=== PATIENT | female | born 1975 | race Caucasian/White ===

== ENCOUNTER 2019-10-03 13:59 | Emergency (ER) | payer MEDICAID, SELFPAY ==
[2019-10-03 14:05] VITALS: BP 115/65; PULSE 95; TEMP 36.7; O2SAT 97
[2019-10-03 14:15] VITALS: RESP 18
[2019-10-03 14:40] VITALS: BP 115/65; PULSE 95; RESP 18; TEMP 36.7; O2SAT 97
[2019-10-03] MEDS: Ibuprofen 600 MG TAB (14:44)
--- NOTE | 2019-10-03 14:47 | ED.GENADUL_ITS ---
Discharge Plan Disposition Patient Disposition: HOME Condition: Stable Discharge Details Chief Complaint: ChemExpose Clinical Impression: Toxic effect of propane Primary Care Provider: Kalee Coleman ED Provider: Gian Cardenas Home Meds and New Rx's Prescriptions: No Action No Known Home Meds RF: 0 Discharge Instructions Additional Instructions: Oxygen level and carbon monoxide level are both appropriate. Please watch for new or worsening symptoms and return to the ER for any concerns. I recommend that you follow the instructions given to you by [facility]. I also recommend that you have the proper detectors in your house and if you are unsure I do believe you can contact the local fire department to be sure of your resources. Watch for new or worsening symptoms and return to the ER for any concerns Medical Decision Making 44-year-old female with no significant past medical history presents after prop ane exposure that occurred last night. [employer] called and they shut off the source. No other gaseous exposures are suspected. She reports improvement of her symptoms from overnight to now but just wants to be sure things are still okay. Denies nausea currently. Reports that she just feels groggy and slightly nauseous. Denies any focal weakness. O2 sats are 97% on room air, lungs are clear to auscultation. She appears well, nontoxic and is neurologically intact. Carbon monoxide level is 2. There is no indication for additional emergent testing here in the ER. Discussed this with patient and family and she is comfortable with this plan. We did discuss the importance of following the instruction set forth by [facility], being sure that she has all appropriate detectors within the house, and that contacting the local fire department may be helpful for further investigation or additional resources locally. Medical Records Medical records reviewed: Yes I reviewed the patient's medical records. HPI General Mode of arrival: ambulatory . Date/Time Provider Initiated Documentation: 10/03/19 14:12 . Limitations to Documentation: no limitations . Information obtained by: patient . HPI Narrative: 44-year-old female with no significant past medical history presents to the ER having been exposed to propane in her house yesterday evening-night. They contacted [facility] and the propane was shut off yesterday night. They do question if there was an exposure for the past 2 or 3 days as they thought perhaps an animal had within their wall, there was a foul smell. Denies any other exposures. She reports feeling groggy, mild headache, and was nauseous. Nausea has resolved. Denies visual changes, chest pain, shortness of breath, numbness, tingling, weakness. She reports that she does feel better than she did last night but after looking online into reading more about the exposure she just wants to be sure that both she and her son are okay Related Data Home Medications Medication Instructions Recorded Confirmed Unknown [No Known Home Meds] 10/03/19 10/03/19 Allergies Allergy/AdvReac Type Severity Reaction Status Date / Time No Known Allergies Allergy Unverified 10/03/19 14:20 General Stated Complaint: ChemExpose CORDELL: 4 Review of Systems Constitutional Constitutional: Denies fatigue, Reports headache(s) and Denies weakness Eyes Eyes: Denies change in vision ENT Ears, Nose, Mouth, and Throat: Reports headache(s) Cardiovascular Cardiovascular: Denies chest pain and Denies dyspnea Respiratory Respiratory: Denies cough and Denies dyspnea Gastrointestinal Gastrointestinal: Reports nausea and Denies vomiting Musculoskeletal Musculoskeletal: Denies myalgias, Denies numbness and Denies tingling Integumentary/Breasts Skin/Breast: Denies rash Neurologic Neurologic: Reports headache(s), Denies numbness, Denies tingling and Denies weakness Endocrine Endocrine: Denies fatigue PFSH Social History Smoking/Tobacco Use Status: Never Alcohol Intake: current Alcohol Intake frequency: holidays/special occasions only Drug use: Never Substance use type: does not use Do you feel safe at home: Yes Do you feel safe in your relationship?: Yes Exam Const General: cooperative, healthy appearing, comfortable and no acute distress Orientation: alert, awake and oriented x3 HENMT Head: normal to inspection, normocephalic and atraumatic Ears: hearing grossly normal bilaterally Mouth: moist mucous membranes Throat: posterior oropharynx normal Eyes General: appearance normal, both eyes and all related structures Alignment and Position: alignment normal Periorbital: periorbital findings normal Eyelids: eyelids normal Conjunctivae: conjunctivae normal Sclera: sclerae normal Cornea: corneas normal Pupils: PERRL EOM: EOM intact bilaterally Direct ophthalmoscopy: normal light reflex Neck Neck: normal visual inspection, full ROM, trachea midline and supple Resp Effort & Inspection: normal respiratory effort and able to speak in complete sentences Auscultation: clear to auscultation bilaterally Cardio Rate: regular rate Rhythm: regular rhythm Skin General skin exam: no rashes or lesions noted Neuro General: alert, awake, oriented x3, moves all extremities and no focal motor deficits Cranial Nerves: CN's II-XI intact bilaterally Cognition: normal cognition Speech: speech normal Gait: normal gait Motor: muscle tone normal throughout Sensory Exam: no sensory deficits noted Extrem General: normal to inspection, full ROM and normal capillary refill Psych Appearance: grossly normal Mental Status: mental status grossly normal Course Vital Signs Vital signs: Vital Signs Temperature 36.7 C 10/03/19 14:05 Pulse 95 H 10/03/19 14:05 Blood Pressure 115/65 10/03/19 14:05 Pulse Oximetry 97 10/03/19 14:05 Temperature 36.7 C 10/03/19 14:40 Temperature Source Temporal Artery Scan 10/03/19 14:05 Pulse 95 H 10/03/19 14:40 Respiratory Rate 18 10/03/19 14:40 Respiratory Effort Non-Labored 10/03/19 14:15 Respiratory Depth Normal 10/03/19 14:15 Respiratory Pattern Normal 10/03/19 14:15 Blood Pressure 115/65 10/03/19 14:40 Blood Pressure Position Sitting 10/03/19 14:05 Pulse Oximetry 97 10/03/19 14:40 Oxygen Delivery Method Room Air 10/03/19 14:05 Oxygen Flow Rate 0 10/03/19 14:05 Pain Level 6 10/03/19 14:44
== END 2019-10-03 14:56 | disposition home or self-care (01) ==
PROVIDERS: Emergency Provider Physician Assistant; PCP Family Medicine
DX: T59.91XA Toxic effect of unspecified gases, fumes and vapors, accidental (unintentional), initial encounter (principal); R51 Headache; R11.0 Nausea
CPT/HCPCS: 99282; 99283

== ENCOUNTER 2020-02-08 02:26 | Outpatient (CLI) | payer MEDICAID, SELFPAY ==
[2020-02-08 10:45] LABS: HCT 40.8 % (36.0-46.0); HGB 13.9 g/dL (12.0-15.5); Mean Corp. HGB Concentration 34.1 g/dL (32.0-36.0); Mean Corpuscular Hemoglobin 32.6 pg (27.0-33.0); Mean Corpuscular Volume 95.8 fL (80-95); Mean Platelet Volume 9.6 fL (8.0-11.0); Platelet Count 267 x1000/uL (130-400); RBC 4.26 m/cumm (4.00-5.20); RBC Distribution Width 12.1 % (11.7-14.6)
[2020-02-08 11:46] LABS: ALT 24 U/L (14-59); AST 15 U/L (15-37); Albumin 4.2 g/dL (3.4-5.0); Alkaline Phosphatase 64 U/L (46-116); Anion Gap 13.5 mmol/L (3-11); BUN 13 mg/dL (7-18); Bilirubin, Total 0.8 mg/dL (0.2-1.0); CO2 21.5 mmol/L (21.0-32.0); CREATININE 0.75 mg/dL (0.55-1.02); Calculated LDL 170 mg/dL (<100); Chloride 102 mmol/L (98-107); Cholesterol 253 mg/dL (<200); Glucose 93 mg/dL (74-106); HDL Cholesterol 68 mg/dL (40-60); Potassium 3.8 mmol/L (3.5-5.1); Sodium 137 mmol/L (136-145); Total Protein 7.3 g/dL (6.4-8.2); Triglyceride 77 mg/dL (<150)
== END 2020-02-08 02:46 ==
PROVIDERS: PCP Family Medicine; Visit Provider Nurse Practitioner Family
DX: Z13.220 Encounter for screening for lipoid disorders (principal); Z13.228 Encounter for screening for other metabolic disorders; Z00.00 Encounter for general adult medical examination without abnormal findings
CPT/HCPCS: 36415; 80053; 80061; 85027

== ENCOUNTER 2024-08-02 23:50 | Emergency (ER) | payer MEDICAID, SELFPAY ==
[2024-08-02 23:54] VITALS: BP 137/79; PULSE 152; RESP 16; TEMP 38.3; O2SAT 97; O2SAT 98
[2024-08-02 23:55] VITALS: BP 137/79; PULSE 146; O2SAT 98
[2024-08-02 23:58] VITALS: BP 137/79; PULSE 152; RESP 16; TEMP 38.3; O2SAT 97
[2024-08-03] VITALS (22 sets, daily range): BP systolic 84–125; BP diastolic 48–72; PULSE 84–135; RESP 11–33; TEMP 37.8; O2SAT 95–100
--- NOTE | 2024-08-03 | RT.EKG_ITS ---
APPROVED REPORT Exam: Resting ECG Reason for Exam: tachycardia Patient Location: E HR:115 bpm ECG Measurements Heart Rate 115 AXIS IL 147 P 38 QRSd 81 QRS 44 QT 345 T -22 QTc 477 Conclusion Sinus tachycardia...rate> 99 Ventricular premature complex...V complex w/ short R-R interval Aberrant conduction of SV complex(es)...aberrant shape, IL 80-220 Sinus tachycardia at 115 Some artifact present Normal axis/interval NS ST changes present
--- NOTE | 2024-08-03 | DI.RAD_ITS ---
Exam(s) XR CHEST 2V PA LATERAL EXAM: XR CHEST 2V PA LATERAL CLINICAL HISTORY: fever, cough, SOB TECHNIQUE: 2D digital imaging was performed of the chest. Two images were obtained. PA and lateral views were obtained. COMPARISON: CR CHEST 2 VIEWS PA,LAT from 01/01/2015 FINDINGS: MEDIASTINUM: Normal. HEART: Normal. PULMONARY VASCULATURE: Normal. LUNGS: Clear. PLEURAL SPACE: No pleural effusion or pneumothorax. BONE:Within normal limits for the patient's age. OTHER FINDINGS:Normal. IMPRESSION: No acute pulmonary findings. DATA REPOSITORY: RADIATION DOSE DELIVERED:
--- NOTE | 2024-08-03 00:09 | ED.GENADUL_ITS ---
Discharge Plan Disposition Patient Disposition: Home Condition: Good Discharge Details Clinical Impression: COVID Primary Care Provider: Kd Mckeon ED Provider: Ashish Parekh [place] Meds and New Rx's Prescriptions: New Paxlovid 300 mg (150 mg x 2)-100 mg tablets,dose pack See Rx Instructions .ROUTE .COMPLEX Qty: 30 0RF Rx Instructions: take TWO 150 mg tablets of nirmatrelvir with ONE 100 mg tablet of ritonavir twice daily for 5 days Discharge Instructions Instructions: COVID-19 ED Additional Instructions: You were seen in the ED for flulike symptoms and found to have COVID. Labs and chest x-ray otherwise reassuring and oxygenation is normal. Prescription for Paxlovid has been sent to your pharmacy you should begin it in the morning. Rest and stay hydrated, alternate acetaminophen with ibuprofen for pain and fever, dextromethorphan for cough if needed. Follow-up primary care next week if not improving. Return to ED for mental status change, increasing difficulty breathing, chest pain, persistent vomiting, other concerns. Referrals: Kd Mckeon [Primary Care Provider] - [facility] General Mode of arrival: ambulatory . Date/Time Provider Initiated Documentation: 08/02/24 23:58 . Limitations to Documentation: no limitations . Information obtained by: patient and RN notes reviewed . HPI Narrative: Patient presents to ED with complaint of fever, body aches, cough, difficulty breathing. Symptoms began on Wednesday. She has been taken [id number] medication with last dose of TheraFlu at 5 PM this afternoon. Has been pushing fluids and is still urinating but really has not been eating much. Denies any vomiting, abdominal pain, diarrhea. Chest pain with coughing fits otherwise just feels short of breath. Has headache and sore throat in addition to body aches. Is otherwise healthy but does report previous episode of pneumonia with sepsis resulting in intubation and ICU admission years ago during a . Related Data Home Medications ?Medication ?Instructions ?Recorded ?Confirmed nirmatrelvir 300 mg (150 mg See Rx Instructions PO .COMPLEX 08/03/24 x2)-ritonavir 100 mg tablet,dose #30 dose pk pack (Paxlovid) Previous Rx's ?Medication ?Instructions ?Recorded nirmatrelvir 300 mg (150 mg See Rx Instructions PO .COMPLEX 08/03/24 x2)-ritonavir 100 mg tablet,dose #30 dose pk pack (Paxlovid) Allergies Allergy/AdvReac Type Severity Reaction Status Date / Time No Known Allergies Allergy Unverified 08/02/24 23:57 General Stated Complaint: RespSymp CORDELL: 3 Review of Systems Narrative: Per HPI Exam Narrative Exam Narrative: Const: WDWN female in NAD. VS per triage. HEENT: NC/AT. Normal facial exam. Neck: Supple. Trachea midline. Lungs: Normal respiratory effort. Lungs are clear. Cor: RRR without murmur. Tachy. Good radial pulses. GI: Soft/ND/NT. Neuro: A+O x 3. Normal speech, mentation, gait. Cranial nerves II - XII grossly intact. No gross motor or sensory deficit. Ext: No C/C/E. Course Vital Signs Vital signs: Vital Signs Temperature 101.0 F H 08/02/24 23:54 Pulse 152 H 08/02/24 23:54 Respiratory Rate 16 08/02/24 23:54 Blood Pressure 137/79 08/02/24 23:54 Pulse Oximetry 97 08/02/24 23:54 Temperature 101.0 F H 08/02/24 23:58 Temperature Source Oral 08/02/24 23:58 Pulse 152 H 08/02/24 23:58 Respiratory Rate 16 08/02/24 23:58 Respiratory Depth Normal 08/03/24 00:00 Blood Pressure 137/79 08/02/24 23:58 Blood Pressure Position Sitting 08/02/24 23:58 Pulse Oximetry 97 08/02/24 23:58 Oxygen Delivery Method Room Air 08/02/24 23:58 Oxygen Flow Rate 0 08/02/24 23:54 Medical Decision Making Patient presents to ED with flulike symptoms and shortness of breath. Her lungs are clear and saturations are normal. She is not tachypneic but she is quite tachycardic. She is febrile to 101 which may be driving some of the tachycardia. Reports pushing fluids but likely has element of dehydration. Will place IV and give liter of saline. Will obtain Fluvid, chest x-ray, CBC and BMP. Oral Tylenol ordered. Patient's laboratory studies are reassuring. White count is normal. Chemistries unremarkable except for potassium slightly low at 3.3. Her Fluvid swab is positive for COVID. Chest x-ray per my read with no acute process. EKG is sinus tachycardia with normal axis and intervals, nonspecific ST changes nothing acute. Discussed use of Paxlovid. She has been on it previously and would like to take once again. Prescription sent to pharmacy. Patient instructed to rest, push fluids, alternate acetaminophen with ibuprofen for fever and discomfort, dextromethorphan for cough if needed. Follow-up primary care next week if not improving. Return precautions provided. Imaging Data Radiologic Study: Attestation: I personally reviewed and interpreted this imaging study as follows: Imaging: X-Ray My impression: see [facility] Lab Data Lab results reviewed: Yes I reviewed the patient's lab results. Lab results narrative: see [facility] ECG Data Attestation: I personally reviewed and interpreted this ECG (s) as follows: Prior ECG tracings: not available for review Interpretation: see EKG/MDM PFSH All Active Problems (Updated 08/03/24 @ 01:19 by Ashish Parekh MD) COVID (Acute) Medical History No significant past medical history Surgical History No significant past surgical history Social History Smoking/Tobacco Use Status: Never Smoking risk assessment performed?: Yes Alcohol Intake: current Alcohol Intake frequency: holidays/special occasions only Drug use: Never Substance use type: does not use Housing: house Do you feel safe at home: Yes Do you feel safe in your relationship?: Yes
[2024-08-03] MEDS: Acetaminophen 500 MG TAB 1000 MG PO (00:25)
[2024-08-03] MEDS: Normal Saline 1,000 ML 1000 ML IV (00:25)
[2024-08-03 00:28] LABS: Abs Immature Grans 0.04 10^3/uL (0.0-0.06); Absolute Basophil Count 0.01 10^3/uL (0.0-0.2); Absolute Eosinophil Count 0.01 10^3/uL (0.0-0.7); Absolute Lymphocyte Count 0.76 10^3/uL (1.2-3.4); Absolute Monocyte Count 0.67 10^3/uL (0.1-0.8); Absolute Neutrophil Count 4.97 10^3/uL (1.2-6.7); Basophils % 0.2 %; Eosinophils % 0.2 %; HCT 42.2 % (36.0-46.0); HGB 14.4 g/dL (11.2-15.7); Immature Grans % 0.6 %; Lymphocytes % 11.8 %; MCH 32.1 pg (27.0-33.0); MCHC 34.1 % (32.0-36.0); MCV 94 fL (80-95); MPV 9.5 fL (8.0-11.0); Monocytes % 10.4 %; Neutrophils % 76.8 %; Platelet Count 221 10^3/uL (130-400); RBC 4.48 10^6/uL (3.93-5.22); RDW 11.9 % (11.7-14.6); RDW-SD 41.5 fL; WBC 6.46 10^3/uL (4.4-10.8)
[2024-08-03 00:38] LABS: Anion Gap 10.3 mmol/L (3-11); BUN 7 mg/dL (7-18); CO2 28.7 mmol/L (21.0-32.0); CREATININE 0.9 mg/dL (0.55-1.02); Chloride 99 mmol/L (98-107); Glucose 162 mg/dL (74-106); Potassium 3.3 mmol/L (3.5-5.1); Sodium 138 mmol/L (136-145)
[2024-08-03 00:43] LABS: Influenza A PCR Negative (Negative); Influenza B PCR Negative (Negative); RSV PCR Negative (Negative)
[2024-08-03 01:06] LABS: COVID-19 PCR Positive (Negative); Source Nasopharynx
--- NOTE | 2024-08-03 02:18 | DI.VRAD_ITS ---
PROCEDURE INFORMATION: Exam: XR Chest Exam date and time: 08/03/2024 12:49 AM Age: 49 years old Clinical indication: Cough and fever and shortness of breath and other: Fever, cough, SOB TECHNIQUE: Imaging protocol: Radiologic exam of the chest. Views: 2 views. COMPARISON: No relevant prior studies available. FINDINGS: Lungs: No focal consolidation seen. Pleural spaces: No large pleural effusion seen. Heart/Mediastinum: No cardiomegaly. Bones/joints: No acute abnormality. IMPRESSION: No acute findings to explain reported symptoms. Dictated and Authenticated by: Analia Mathews MD. Ordering:TANK Hinojosa MD
== END 2024-08-03 02:34 | disposition home or self-care (01) ==
LOC: ER 08-03 02:35
PROVIDERS: Emergency Provider Emergency Medicine; PCP Family Medicine
DX: U07.1 COVID-19 (principal); R00.0 Tachycardia, unspecified
CPT/HCPCS: 80048; 87637; 93005; 96360; 99285; 71046; 85025; 93010; 99284